=== PATIENT | male | born 1995 | race African-American/Black ===

== ENCOUNTER 2016-08-20 08:54 | Emergency (ER) | payer SELFPAY ==
[2016-08-20 09:01] VITALS: BP 117/71; BMI 19.2
== END 2016-08-20 09:55 | disposition left against medical advice (07) ==
LOC: ER 09:11
DX: R07.89 Other chest pain (principal)
CPT/HCPCS: 99281

== ENCOUNTER 2016-10-27 10:32 | Emergency (ER) | payer SELFPAY ==
[2016-10-27 10:38] VITALS: BP 112/57; BMI 20.9
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
[2016-10-27 12:45] LABS: CHLAMYDIA TRACH URINE DETECTED (NOT DETECT)
[2016-10-27] MEDS ORDERED: ROCEPHIN VIAL 1 GM IM ONE (12:50)
[2016-10-27] MEDS ORDERED: ROCEPHIN VIAL 1 GM ONE (12:55)
[2016-10-27] MEDS ORDERED: XYLOCAINE 1 % (PLAIN) ONE (12:55)
== END 2016-10-27 13:11 | disposition home or self-care (01) ==
LOC: ER 10:41
DX: A54.9 Gonococcal infection, unspecified (principal); A74.9 Chlamydial infection, unspecified
CPT/HCPCS: 87491; 87591; 96372; 99282; J0696; J2001

== ENCOUNTER 2017-06-01 00:20 | Emergency (ER) | payer OTHER ==
[2017-06-01 00:40] VITALS: BP 126/73; BMI 18.8
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
--- NOTE | 2017-06-01 02:32 | RAD ---
Left hand, three views Indication: Laceration to the little finger Comparison: None Findings: There is a laceration to the medial little finger at the PIP joint. No underlying fracture, malalignment or radiopaque foreign body is identified. The remainder of the left hand is unremarkabl e. Impression: Laceration to the medial little finger without acute fracture or radiopaque foreign body. Reported By:
[2017-06-01] MEDS ORDERED: BENZOIN COMPOUND TINCTURE ONE (03:09)
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
== END 2017-06-01 03:19 ==
LOC: ER 00:20
DX: S00.33XA Contusion of nose, initial encounter (principal); S61.217A Laceration without foreign body of left little finger without damage to nail, initial encounter; S02.2XXA Fracture of nasal bones, initial encounter for closed fracture; R51 Headache; V87.7XXA Person injured in collision between other specified motor vehicles (traffic), initial encounter
CPT/HCPCS: 70450; 70486; 72125; 73130; 99283